=== PATIENT | female | born 1995 | race Native Hawaiian/Other Pacific Islander ===

== ENCOUNTER 2017-10-02 14:35 | Outpatient (CLI) | payer OTHER | END 2017-10-02 19:26 | disposition home or self-care (01) | LOC: INF 14:35 | DX: O36.0131 Maternal care for anti-D [Rh] antibodies, third trimester, fetus 1 (principal) | CPT/HCPCS: 36415; 86850; 86900; 86901; J2790 ==

== ENCOUNTER 2018-05-03 00:37 | Emergency (ER) | payer OTHER ==
[~2018-05-03] VITALS: Ht 160 cm; Wt 69.9 kg
[2018-05-03 01:46] VITALS: BP 120/88; TEMP 98.6
== END 2018-05-03 01:47 | disposition home or self-care (01) ==
LOC: ED 00:37
DX: J03.00 Acute streptococcal tonsillitis, unspecified (principal); R50.9 Fever, unspecified
CPT/HCPCS: 87651; 96372; 99283; J0696

== ENCOUNTER 2019-11-23 19:31 | Emergency (ER) | payer OTHER ==
[~2019-11-23] VITALS: Ht 160 cm; Wt 87.1 kg
[2019-11-23 21:55] VITALS: BP 145/89; TEMP 98.9
== END 2019-11-23 21:55 | disposition home or self-care (01) ==
LOC: ED 19:31
DX: S80.01XA Contusion of right knee, initial encounter (principal); W01.0XXA Fall on same level from slipping, tripping and stumbling without subsequent striking against object, initial encounter; Y93.89 Activity, other specified; Y92.89 Other specified places as the place of occurrence of the external cause
CPT/HCPCS: 99282

== ENCOUNTER 2020-01-03 13:21 | Outpatient (CLI) | payer OTHER | END 2020-01-03 20:32 | disposition home or self-care (01) | LOC: US 13:21 | DX: N63.10 Unspecified lump in the right breast, unspecified quadrant (principal) ==

== ENCOUNTER 2021-05-31 14:55 | Outpatient (CLI) | payer OTHER | END 2021-05-31 20:39 | disposition home or self-care (01) | LOC: US 14:55 | PROVIDERS: ATTEND Nurse Practitioner Family | DX: N63.11 Unspecified lump in the right breast, upper outer quadrant (principal) ==

== ENCOUNTER 2021-06-05 16:32 | Emergency (ER) | payer OTHER ==
[~2021-06-05] VITALS: Ht 160 cm; Wt 86.2 kg
[2021-06-05 16:37] VITALS: BP 119/73; TEMP 102.7
== END 2021-06-05 17:30 | disposition home or self-care (01) ==
LOC: ED 16:32
DX: J06.9 Acute upper respiratory infection, unspecified (principal); Z20.822 Contact with and (suspected) exposure to COVID-19; R50.9 Fever, unspecified; F17.210 Nicotine dependence, cigarettes, uncomplicated
CPT/HCPCS: 87502; 87635; 87651; 99283; U0003

== ENCOUNTER 2021-09-10 11:42 | Outpatient (CLI) | payer OTHER | END 2021-09-10 19:45 | disposition home or self-care (01) | LOC: RAD 11:42 | PROVIDERS: ATTEND Nurse Practitioner Family | DX: M79.672 Pain in left foot (principal) ==

== ENCOUNTER 2021-12-16 07:23 | Emergency (ER) | payer OTHER ==
[~2021-12-16] VITALS: Ht 160 cm; Wt 86.2 kg
[2021-12-16 07:33] VITALS: BP 114/66; TEMP 97.7
[2021-12-16 08:06] LABS: PLATELET COUNT 175 K/uL (152-353)
[2021-12-16 08:09] LABS: POTASSIUM 3.6 mmol/L (3.6-5.2)
== END 2021-12-16 09:30 | disposition home or self-care (01) ==
LOC: ED 07:23
PROVIDERS: Hospitalist
DX: J06.9 Acute upper respiratory infection, unspecified (principal); M54.59 Other low back pain; J02.0 Streptococcal pharyngitis; B34.9 Viral infection, unspecified; U07.1 COVID-19; F17.210 Nicotine dependence, cigarettes, uncomplicated
CPT/HCPCS: 80048; 81002; 81025; 85027; 87502; 87635; 87651; 99283; U0003

== ENCOUNTER 2021-12-16 16:44 | Emergency (ER) | payer OTHER ==
[~2021-12-16] VITALS: Ht 160 cm; Wt 87.5 kg
[2021-12-16 18:52] VITALS: BP 95/53; TEMP 98.5
== END 2021-12-16 18:52 | disposition home or self-care (01) ==
LOC: ED 16:44
DX: U07.1 COVID-19 (principal); J40 Bronchitis, not specified as acute or chronic; J02.0 Streptococcal pharyngitis; F17.210 Nicotine dependence, cigarettes, uncomplicated
CPT/HCPCS: 84484; 85379; 85610; 93005; 96374; 96375; 99283; J1885

== ENCOUNTER 2022-05-14 11:06 | Emergency (ER) | payer OTHER ==
[~2022-05-14] VITALS: Ht 160 cm; Wt 86.2 kg
[2022-05-14 11:10] VITALS: TEMP 98.1
[2022-05-14 12:18] LABS: PLATELET COUNT 249 K/uL (152-353)
[2022-05-14 12:24] LABS: POTASSIUM 4.2 mmol/L (3.6-5.2)
[2022-05-14 13:30] VITALS: BP 130/72
== END 2022-05-14 13:42 | disposition home or self-care (01) ==
LOC: ED 11:06
PROVIDERS: Emergency Medicine Emergency Medical Services
DX: R09.1 Pleurisy (principal)
CPT/HCPCS: 36415; 80048; 81025; 84484; 85027; 85379; 93005; 96360; 96374; 99284; J1885

== ENCOUNTER 2022-05-23 10:33 | Outpatient (CLI) | payer OTHER | END 2022-05-23 19:11 | disposition home or self-care (01) | LOC: US 10:33 | PROVIDERS: ATTEND Family Medicine | DX: N63.10 Unspecified lump in the right breast, unspecified quadrant (principal); M79.621 Pain in right upper arm; R22.30 Localized swelling, mass and lump, unspecified upper limb; R51.9 Headache, unspecified ==

== ENCOUNTER 2022-07-25 08:37 | Outpatient (CLI) | payer OTHER ==
[2022-07-25 09:35] LABS: PLATELET COUNT 252 K/uL (152-353)
[2022-07-25 09:39] LABS: POTASSIUM 4.4 mmol/L (3.6-5.2)
== END 2022-07-25 19:08 | disposition home or self-care (01) ==
LOC: LABW 08:37
PROVIDERS: ATTEND Family Medicine
DX: F32.9 Major depressive disorder, single episode, unspecified (principal); Z82.49 Family history of ischemic heart disease and other diseases of the circulatory system; F41.9 Anxiety disorder, unspecified; Z68.34 Body mass index [BMI] 34.0-34.9, adult
CPT/HCPCS: 36415; 80053; 80061; 81002; 84439; 84443; 85027

== ENCOUNTER 2022-09-12 17:38 | Emergency (ER) | payer OTHER ==
[~2022-09-12] VITALS: Ht 160 cm; Wt 86.2 kg
[2022-09-12 17:40] VITALS: BP 118/71; TEMP 98.6
== END 2022-09-12 19:20 | disposition home or self-care (01) ==
LOC: ED 17:38
PROC: 2W3LX1Z Immobilization of Right Lower Extremity using Splint (ICD-10-PCS; principal; 2022-09-12)
DX: S93.401A Sprain of unspecified ligament of right ankle, initial encounter (principal); E66.9 Obesity, unspecified; F17.200 Nicotine dependence, unspecified, uncomplicated; X58.XXXA Exposure to other specified factors, initial encounter
CPT/HCPCS: 81025; 99282; J1885